=== PATIENT | male | born 1945 | race Caucasian/White ===

== ENCOUNTER → 2016-10-24 | Outpatient (CLI) | payer MEDICARE ==
[~2016-10-24] MED LIST: ACYC-57 PO; ASCO10004 PO; ASPI325T4 PO; ATOR10TA PO; ATOR10TA9 PO; BENA10TA2 PO; BUDE10.2 INH; CEFD300C37 PO; CHLO25TA PO; CLOP75TA22 PO; DOXY100T PO; FERR325C PO; FURO-93 PO; MAGNESIUM PO; MERC50TA17; MERC50TA17 PO; MESA1.2T PO; POTA10TA11 PO; POTASSIUM PO; PRAV10TA2 PO; PRED20TA PO; PRED50TA PO; SULF1TAB24 PO; TIOT18CA INH
[2016-10-24 15:18] LABS: BLOOD UREA NITROGEN 8 mg/dL (7-18)
[2016-10-24 15:21] LABS: ASPARTATE AMINO TRANSFERASE 22 U/L (15-37)
== END | disposition home or self-care (01) ==
LOC: STAR 13:54
PROVIDERS: ATTEND Internal Medicine Gastroenterology
DX: Z01.818 Encounter for other preprocedural examination (principal); K92.1 Melena; K51.918 Ulcerative colitis, unspecified with other complication; R93.8 Abnormal findings on diagnostic imaging of other specified body structures
CPT/HCPCS: 36415; 80053; 93005

== ENCOUNTER 2016-10-30 06:06 | Day surgery (SDC) | payer MEDICARE ==
[2016-10-24 14:13] VITALS: BP 152/71
[~2016-10-30] VITALS: Ht 170.2 cm; Wt 77.0 kg
[2016-10-30] MEDS ORDERED: LACTATED RINGERS 1,000 ML IV SCH (07:17)
[2016-10-30 07:18] VITALS: BP 152/71
[2016-10-30] MEDS ORDERED: LIDOCAINE 1%, 2ML SQ PRN (07:30)
[2016-10-30] MEDS ORDERED: ALBUTEROL SULFATE 2.5 MG/3 ML NPPB PRN (08:00)
[2016-10-30] MEDS ORDERED: PROPOFOL 10 MG/ML, 20ML ONE (11:00)
[2016-10-30] MEDS ORDERED: PHENYLEPHRINE 10 MG/ML ONE (11:00)
== END 2016-10-30 10:45 ==
LOC: OUT 06:06
PROVIDERS: ATTEND Internal Medicine Gastroenterology
DX: K51.90 Ulcerative colitis, unspecified, without complications (principal); K63.5 Polyp of colon; J44.9 Chronic obstructive pulmonary disease, unspecified; I10 Essential (primary) hypertension; Z86.73 Personal history of transient ischemic attack (TIA), and cerebral infarction without residual deficits; Z79.82 Long term (current) use of aspirin
CPT/HCPCS: 45380; 88305; J2370; J2704; J7120

== ENCOUNTER 2016-12-02 10:03 | Inpatient (IN) | payer MEDICARE ==
[~2016-12-02] VITALS: Ht 167.6 cm; Wt 69.2 kg
[2016-12-02] VITALS (10 sets, daily range): BP systolic 118–146; BP diastolic 46–70
[~2016-12-02 10:03] MED LIST changes: +ASPI325T17 PO; -ASPI325T4 PO; -CLOP75TA22 PO; +CLOP75TA52 PO
[2016-12-02] MEDS ORDERED: SODIUM CHLORIDE 0.9% 1,000ML IVBOLUS ONE (10:30)
[2016-12-02] MEDS ORDERED: SODIUM CHLORIDE FLUSH 10ML SYR IVF ONE (10:30)
[2016-12-02 11:10] LABS: HEMOGLOBIN 7.5 g/dL (13.7-18.0); WHITE BLOOD COUNT 2.8 x10^3/uL (3.4-10)
[2016-12-02 11:12] LABS: HEMATOCRIT 22.8 % (39.2-51.8)
[2016-12-02 11:14] LABS: BLOOD UREA NITROGEN 9 mg/dL (7-18)
[2016-12-02 11:22] LABS: IS PT STATUS REG ER OR PRE ER? NO
[2016-12-02 11:30] LABS: DIFF TOTAL CELLS COUNTED 100 CELL DIFF
[2016-12-02 11:33] LABS: ANISOCYTOSIS 1+; POLYCHROMASIA 1+; VERIFY COUNTS? YES
[2016-12-02 11:34] LABS: OVALOCYTES 1+
[2016-12-02] MEDS ORDERED: ONDANSETRON ODT 4 MG PO PRN (14:00)
[2016-12-02] MEDS ORDERED: MORPHINE SULFATE 4 MG/ML, 1ML IVPush PRN (14:00)
[2016-12-02] MEDS ORDERED: DOCUSATE 100 MG CAPSULE PO PRN (14:00)
[2016-12-02] MEDS ORDERED: ONDANSETRON 2MG/ML, 2ML IVPush PRN (14:00)
[2016-12-02] MEDS ORDERED: POTASSIUM CHLORIDE 10 MEQ in SODIUM CHLORIDE 0.9% 1,000 ML IV SCH (14:00)
[2016-12-02] MEDS: IPRATROPIUM 0.5 MG/2.5 ML INHA NPPB SCH ×2 (16:00→21:00)
[2016-12-02] MEDS ORDERED: IPRATROPIUM 0.5 MG/2.5 ML INHA ONE (17:05)
[2016-12-02] MEDS: VANCOMYCIN 50 MG/ML ORAL SUSP PO SCH (18:11)
[2016-12-02] MEDS: LACTULOSE 10 GM/15 ML UDC PO SCH (20:18)
[2016-12-02] MEDS: ATORVASTATIN 10 MG TABLET PO SCH (20:19)
[2016-12-03] MEDS: VANCOMYCIN 50 MG/ML ORAL SUSP PO SCH ×4 (00:48→17:09)
[2016-12-03 00:50] VITALS: BP 124/79
[2016-12-03] MEDS: IPRATROPIUM 0.5 MG/2.5 ML INHA NPPB SCH ×3 (03:00→20:45)
[2016-12-03 06:04] LABS: HEMATOCRIT 29.2 % (39.2-51.8); HEMOGLOBIN 9.9 g/dL (13.7-18.0); WHITE BLOOD COUNT 2.4 x10^3/uL (3.4-10)
[2016-12-03 06:40] LABS: BLOOD UREA NITROGEN 7 mg/dL (7-18)
[2016-12-03 06:46] LABS: DIFF TOTAL CELLS COUNTED 100 CELL DIFF; VERIFY COUNTS? YES
[2016-12-03 06:47] LABS: ANISOCYTOSIS 1+; POLYCHROMASIA 1+
[2016-12-03 07:14] VITALS: BP 127/83
[2016-12-03] MEDS: LACTULOSE 10 GM/15 ML UDC PO SCH ×2 (08:28→21:00)
[2016-12-03] MEDS: SENNA/DOCUSATE TABLET PO SCH (08:28)
[2016-12-03] MEDS: MAGNESIUM OXIDE 400 MG TABLET PO SCH (08:37)
[2016-12-03] MEDS: POTASSIUM CHLORIDE 8 MEQ TABLET.ER PO SCH (08:37)
[2016-12-03] MEDS: BENAZEPRIL 20 MG TABLET PO SCH (08:37)
[2016-12-03] MEDS: ASCORBIC ACID 500 MG TABLET PO SCH (08:38)
[2016-12-03] MEDS: TEMPLATE NON-FORMULARY MED. (Budesonide/Formoterol Fumarate (Symbicort 160-4.5 Mcg Inhaler INH SCH (08:38)
[2016-12-03] MEDS: MERCAPTOPURINE 50 MG TABLET PO SCH (09:54)
[2016-12-03] MEDS ORDERED: POTASSIUM CHLORIDE 10 MEQ in SODIUM CHLORIDE 0.9% 1,000 ML IV SCH (14:00)
[2016-12-03] MEDS: POTASSIUM CHLORIDE 10 MEQ in SODIUM CHLORIDE 0.9% 1,000 ML IV SCH (14:23)
[2016-12-03 14:29] VITALS: BP 117/66
[2016-12-03 17:32] LABS: HEMATOCRIT 29.4 % (39.2-51.8); HEMOGLOBIN 9.7 g/dL (13.7-18.0)
[2016-12-03] MEDS ORDERED: IPRATROPIUM 0.5 MG/2.5 ML INHA ONE (18:31)
[2016-12-03 20:00] VITALS: BP 126/63
[2016-12-03] MEDS: ATORVASTATIN 10 MG TABLET PO SCH (21:12)
[2016-12-04] MEDS: VANCOMYCIN 50 MG/ML ORAL SUSP PO SCH ×3 (00:42→11:51)
[2016-12-04 00:53] VITALS: BP 120/74
[2016-12-04] MEDS: POTASSIUM CHLORIDE 10 MEQ in SODIUM CHLORIDE 0.9% 1,000 ML IV SCH (04:29)
[2016-12-04 06:13] LABS: HEMATOCRIT 29.4 % (39.2-51.8); HEMOGLOBIN 9.9 g/dL (13.7-18.0); WHITE BLOOD COUNT 3.2 x10^3/uL (3.4-10)
[2016-12-04 06:58] VITALS: BP 138/71
[2016-12-04] MEDS: LACTULOSE 10 GM/15 ML UDC PO SCH (09:00)
[2016-12-04] MEDS: IPRATROPIUM 0.5 MG/2.5 ML INHA NPPB SCH (09:00)
[2016-12-04] MEDS: SENNA/DOCUSATE TABLET PO SCH (09:00)
[2016-12-04] MEDS: TEMPLATE NON-FORMULARY MED. (Budesonide/Formoterol Fumarate (Symbicort 160-4.5 Mcg Inhaler INH SCH (09:00)
[2016-12-04] MEDS: MAGNESIUM OXIDE 400 MG TABLET PO SCH (10:06)
[2016-12-04] MEDS: BENAZEPRIL 20 MG TABLET PO SCH (10:06)
[2016-12-04] MEDS: ASCORBIC ACID 500 MG TABLET PO SCH (10:07)
[2016-12-04] MEDS: POTASSIUM CHLORIDE 8 MEQ TABLET.ER PO SCH (10:07)
[2016-12-04] MEDS: MERCAPTOPURINE 50 MG TABLET PO SCH (10:07)
[2016-12-04] MEDS ORDERED: VANC125C2 PO ×3 (15:08→15:28)
[2016-12-04] MEDS ORDERED: PRED20TA PO ×2 (15:08→15:21)
[2016-12-08 15:07] LABS: ANTI - INFLIXIMAB ANTIBODY <22 ng/mL (.); INFLIXIMAB DRUG LEVEL 1.5 ug/mL (.)
== END 2016-12-04 17:30 | disposition home or self-care (01) | DRG 872 ==
LOC: ED 12:05 → EDIP 12:06 → 4WST 12:07 → ED 12:25
PROVIDERS: ADMIT Internal Medicine; ATTEND Internal Medicine
PROC: 30233N1 Transfusion of Nonautologous Red Blood Cells into Peripheral Vein, Percutaneous Approach (ICD-10-PCS; principal; 2016-12-02)
DX: A41.9 Sepsis, unspecified organism (principal); J96.11 Chronic respiratory failure with hypoxia; A04.7 Enterocolitis due to Clostridium difficile; E44.0 Moderate protein-calorie malnutrition; R64 Cachexia; D70.9 Neutropenia, unspecified; K51.011 Ulcerative (chronic) pancolitis with rectal bleeding; I50.32 Chronic diastolic (congestive) heart failure; D62 Acute posthemorrhagic anemia; I45.2 Bifascicular block; I11.0 Hypertensive heart disease with heart failure; D89.9 Disorder involving the immune mechanism, unspecified; B02.9 Zoster without complications; J44.9 Chronic obstructive pulmonary disease, unspecified; I73.9 Peripheral vascular disease, unspecified; E78.5 Hyperlipidemia, unspecified; D53.9 Nutritional anemia, unspecified; I25.10 Atherosclerotic heart disease of native coronary artery without angina pectoris; I35.0 Nonrheumatic aortic (valve) stenosis; G47.30 Sleep apnea, unspecified; K59.00 Constipation, unspecified; Z86.74 Personal history of sudden cardiac arrest; I25.2 Old myocardial infarction; Z87.891 Personal history of nicotine dependence; Z86.14 Personal history of Methicillin resistant Staphylococcus aureus infection; Z86.73 Personal history of transient ischemic attack (TIA), and cerebral infarction without residual deficits; Z99.81 Dependence on supplemental oxygen
CPT/HCPCS: 36415; 36430; 74022; 80048; 80299; 81001; 81003; 82040; 82397; 82607; 82746; 83605; 83735; 83993; 84484; 85014; 85018; 85025; 85610; 85651; 85730; 86141; 86850; 86900; 86923; 87040; 87086; 87324; 87328; 87329; 93005; 94640; 96360; 96361; J3370; J3480; J7644; J7030; J7512; P9016